=== PATIENT | male | born 1955 | race Caucasian/White ===

== ENCOUNTER → 2018-09-12 | Outpatient (CLI) | payer OTHER ==
[~2018-09-12] MED LIST: ALTA1CAP3 PO; ASPI81TA85 PO; ATOR1TAB21 PO; OMEP1CAP73 PO; PROZ20CA11 PO
--- NOTE | 2018-09-13 02:56 | REP ---
Clinical: Heel pain. Technique: Axial and lateral views of the right calcaneus. Findings: Small calcaneal heal spur identified. No acute fracture dislocation. Impression: Small heel spur. Electronically Signed by Bao Shah MD 09/13/2018 02:48 A
== END ==
LOC: M WUC 09:38
PROVIDERS: ATTEND Nurse Practitioner Adult Health
DX: M77.31 Calcaneal spur, right foot (principal)

== ENCOUNTER → 2020-03-10 | Outpatient (CLI) | payer SELFPAY ==
[~2020-03-10] MED LIST changes: -ASPI81TA85 PO; +ASPI81TA86 PO
== END ==
LOC: M LABSMTC 10:09
PROVIDERS: ATTEND Pediatrics
DX: Z20.822 Contact with and (suspected) exposure to COVID-19 (principal)

== ENCOUNTER → 2020-03-30 | Outpatient (REF) | payer MEDICARE, OTHER ==
[2020-03-30 14:04] LABS: PERCENT SATURATION 58.4 % (19.7-50.0)
[2020-03-30 14:14] LABS: FOLATE 18.5 NG/ML
== END ==
LOC: M LAB REF 12:33
PROVIDERS: ATTEND Internal Medicine
DX: D72.819 Decreased white blood cell count, unspecified (principal)

== ENCOUNTER → 2020-05-05 | Outpatient (CLI) | payer MEDICARE, OTHER ==
--- NOTE | 2020-05-05 16:37 | REP ---
INDICATION: CONTUSION OF LEFT SHOULDER, SPRAIN AT NECK LEVEL. COMPARISON: 04/16/2015 TECHNIQUE: Seven views provided with extension flexion. FINDINGS: Cervical spondylosis noted with disc space narrowing and anterior osteophytes at C3-4 through C6-7. Disc space narrowing greatest at C5-6. No compression deformities are seen foramina show uncinate spurring and facet arthropathy some encroachment at C 3 4 through C 5 6 on the right and C3-4 through C5-6 on the left. Flexion and extension view show adequate range of motion with no instability. Dens and lateral masses align normally on the open mouth view. No torticollis. Facet arthropathy noted. Lung apices without the pleural thickening. IMPRESSION: Cervical spondylosis C3-4 through C6-7 greatest at C5-6 and with adequate flexion and extension views no compression deformity or malalignment. No instability. Bilateral foraminal encroachment C3-4 through C5-6 with uncinate and facet spurs. This may be mildly increased overall compared to the study 5 years ago. <Electronically signed by Sunil Acosta > 05/05/20 [id number]
--- NOTE | 2020-05-05 16:39 | REP ---
INDICATION: CONTUSION OF LEFT SHOULDER, SPRAIN AT NECK LEVEL. COMPARISON: None. TECHNIQUE: Three views FINDINGS: AC joint shows sclerosis and some inferior spurring. Glenohumeral joint shows minor degenerative changes. Contour deformity greater tuberosity may reflect posterior impingement from the peripheral acromion. No abnormal soft tissue calcification. No definite acute fracture or destructive lesion. Clavicle, ribs and scapula without fracture. IMPRESSION: AC and glenohumeral joint degenerative changes with presumed posterior impingement of the greater tuberosity humeral head from peripheral acromial spurring. No fracture, subluxation or dislocation. <Electronically signed by Sunil Acosta > 05/05/20 [id number]
== END ==
LOC: M WUC 14:10
PROVIDERS: ATTEND Physician Assistant
DX: M47.812 Spondylosis without myelopathy or radiculopathy, cervical region (principal); S40.012A Contusion of left shoulder, initial encounter; S16.1XXA Strain of muscle, fascia and tendon at neck level, initial encounter

== ENCOUNTER → 2021-03-20 | Outpatient (CLI) | payer MEDICARE, OTHER | LOC: M LABSMTC 10:39 | PROVIDERS: ATTEND Internal Medicine | DX: Z11.59 Encounter for screening for other viral diseases (principal); Z20.828 Contact with and (suspected) exposure to other viral communicable diseases ==

== ENCOUNTER → 2021-04-16 | Outpatient (CLI) | payer MEDICARE, OTHER | LOC: M LABSMTC 10:40 | PROVIDERS: ATTEND Nurse Practitioner Family | DX: Z20.822 Contact with and (suspected) exposure to COVID-19 (principal) ==

== ENCOUNTER 2022-08-16 06:28 | Day surgery (SDC) | payer MEDICARE, OTHER ==
[~2022-08-16] VITALS: Ht 170.2 cm; Wt 100.1 kg
[~2022-08-16 06:28] MED LIST changes: +AMLO1TAB24 PO; +BUSP5TA PO; +CETI10CA2 PO; +ECOT81TA5 PO; +ELIQ5TAB PO; +LOSA100T46 PO; +POTA99CA2 PO; +VARD20TA PO
[2022-08-16] MEDS ORDERED: LR 1,000 ML IV SCH (06:50)
[2022-08-16] MEDS ORDERED: CETACAINE SPRAY 5GM As Ordered ONE (07:25)
[2022-08-16] MEDS ORDERED: propofoL 200 MG/20 ML VIAL As Ordered ONE (08:27)
[2022-08-16] MEDS ORDERED: LIDOCAINE 2% 100MG/5ML SDV (FOR ANES.) As Ordered ONE (08:27)
[2022-08-16 09:00] VITALS: BP 188/91; TEMP 98; O2SAT 97
== END 2022-08-16 09:00 | disposition home or self-care (01) ==
LOC: M SDC 06:28
PROVIDERS: ATTEND Internal Medicine Cardiovascular Disease
DX: I35.0 Nonrheumatic aortic (valve) stenosis (principal); Z95.2 Presence of prosthetic heart valve; I11.9 Hypertensive heart disease without heart failure; E78.00 Pure hypercholesterolemia, unspecified; I73.9 Peripheral vascular disease, unspecified; K21.9 Gastro-esophageal reflux disease without esophagitis; Z79.01 Long term (current) use of anticoagulants; Z79.899 Other long term (current) drug therapy; G47.30 Sleep apnea, unspecified

== ENCOUNTER → 2023-07-11 | Outpatient (REF) | payer MEDICARE, OTHER | LOC: M LAB REF 18:03 | PROVIDERS: ATTEND Internal Medicine | DX: I1A.0 Resistant hypertension (principal) ==